=== PATIENT | female | born 1930 | race Caucasian/White ===

== ENCOUNTER 2017-01-29 08:59 | Inpatient (IN) ==
[2017-01-29 10:50] VITALS: BMI 24.5
[2017-01-29] MEDS ORDERED: NS 1,000 ML IV SCH (11:30)
--- OUTSIDE RECORDS SUMMARY | 2017-01-29 11:38 | External Medical Summary ---
:1930 Author Organization [facility]. Summary purpose CCDA Sent to [facility] Chief Complaint and Reason for Visit No authorized Reason for Visit (Admitting Diagnosis) is available for this visit. Problem list No authorized problems tracked for continuity of care are available for this visit. Encounters No authorized problems tracked for encounter diagnoses are available for this visit. Medications No medications recorded for this patient visit Allergies, adverse reactions, alerts Allergen Category Ingredient Status Reaction Severity Onset Demerol Drug Demerol Active Nausea Adult Demerol Drug meperidine Active Nausea Adult Immunizations No immunizations recorded for this patient visit Relevant diagnostic tests and/or laboratory data RESULTS CBC [id number]:16:00 Result Normal Range Units WBC 6.16 4.8-10.8 x103/mm3 Neutrophil % 57.5 50-70 % Lymph % 26.8 20-50 % Har[place]on % H 9.9 1.0-9.0 % Eosinophil % H 5.5 0-4 % Basophil % 0.3 0-2 % Neutrophil # 3.54 3.0-7.0 x103/mm3 Lymph # 1.65 1.0-4.0 x103/mm3 Haralson # 0.61 0.0-0.8 x103/mm3 Eosinophil # 0.34 0-0.5 x103/mm3 Basophil # 0.02 0-0.2 x103/mm3 RBC 4.52 4.20-5.40 x103/mm3 HGB 14.6 12.0-16.0 g/dl HCT 42.9 37.0-47.0 % MCV 94.9 81-99 FL MCH H 32.3 27.0-31.0 pg MCHC 34.0 32.0-36.0 g/dl RDW 12.6 12-15 % Platelet 183 150-400 x103/mm3 MPV H 11.7 6.0-10.0 FL Chemistry Group [id number]:00 Result Normal Range Units Sodium 141 134-145 mmol/L Potassium L 3.5 3.6-5.0 mmol/L Chloride L 97 98-107 mmol/L CO2 H 33 22-30 mmol/L Glucose H 115 75-110 mg/dl BUN 16 9-20 mg/dl Creatinine 1.26 0.8-1.7 mg/dl eGFR 40 ml/min. Total Protein 7.0 6.3-8.2 g/dl Albumin 3.6 3.5-5.0 g/dl Calcium HC 12.9 8.4-10.2 mg/dl CALLED TO ASH AT 14:02 [id number] BY LAD Alk Phos 76 38-126 U/L AST 26 14-36 U/L ALT 14 11-66 U/L T Bili .7 0.2-1.3 mg/dl A/G Ratio 1.1 Ratio History of procedures Procedure Code Code Type Description Date Performed Performing Physician 68241 CPT-4 COMPLETE CBC, 08-18-2016 JUNIE GRIDER AUTOMATED 59209 CPT-4 COMPREHEN METABOLIC 08-18-2016 JUNIE GRIDER PANEL Functional status No functional or cognitive status observations are available for this visit. Vital signs No authorized vital signs are available for this visit. Social history No Social History or smoking status observations were recorded for this visit. ( Unknown if ever smoked.) Treatment Plan No treatment plan text is available for this visit. Hospital discharge instructions No discharge instruction text is available for this visit.
--- OUTSIDE RECORDS SUMMARY | 2017-01-29 11:38 | External Medical Summary ---
:[address] [facility]. Summary purpose CCDA Sent to [facility] Chief Complaint and Reason for Visit Admit Diagnosis 1 bloody stools Problem list No authorized problems tracked for [...] visit Relevant diagnostic tests and/or laboratory data No authorized results are available for this patient visit History of procedures No procedures recorded for this patient visit. Functional status No functional or cognitive status [...]
--- OUTSIDE RECORDS SUMMARY | 2017-01-29 11:41 | External Medical Summary ---
:1930 Author Organization [facility]. Summary purpose CCDA Sent to [facility] Chief Complaint and Reason for Visit [...]
--- OUTSIDE RECORDS SUMMARY | 2017-01-29 11:46 | External Medical Summary ---
:1930 Author Organization [facility]. Summary purpose CCDA Sent to [facility] Chief Complaint and Reason for Visit Admit Diagnosis 1 rectal bleeding Problem list No authorized problems tracked for [...]
--- OUTSIDE RECORDS SUMMARY | 2017-01-29 11:46 | External Medical Summary ---
:1930 Author Organization [facility]. Summary purpose CCDA Sent to [facility] Chief Complaint and Reason for Visit [...] for this patient visit History of procedures Procedure Code Code Type Description Date Performed Performing Physician 71541 CPT-4 THERAPEUTIC EXERCISES 09-14-2016 DAJUAN WILKINSONLOM [place] [address]7071 CPT-4 GAIT TRAINING THERAPY 09-14-2016 DAJUAN NOYOLA [place] 79217 CPT-4 PT EVAL MOD COMPLEX 30 09-14-2016 DAJUAN [place]UM [place] [address] CPT-4 NEUROMUSCULAR 09-21-2016 DAJUAN ULRADUM [place] REEDUCATION 93905 CPT-4 NEUROMUSCULAR 09-23-2016 DAJUAN MINHRADUM [place] REEDUCATION 28183 CPT-4 GAIT TRAINING THERAPY 09-21-2016 DAJUAN ULLOM [place] 15659 CPT-4 GAIT TRAINING THERAPY 09-23-2016 DAJUAN MINHLOM [place] 44775 CPT-4 MANUAL THERAPY 09-21-2016 DAJUAN ULLOM [place] 26608 CPT-4 MANUAL THERAPY 09-23-2016 DAJUAN ULLOM [place] 22444 CPT-4 THERAPEUTIC EXERCISES 09-30-2016 DAJUAN ULLOM [place] 92311 CPT-4 THERAPEUTIC EXERCISES 10-02-2016 DAJUAN ULLOM [place] 50710 CPT-4 MANUAL THERAPY 09-30-2016 DAJUAN ULRADUM [place] 05181 CPT-4 MANUAL THERAPY 10-02-2016 DAJUAN ULLOM [place] 01822 CPT-4 THERAPEUTIC EXERCISES 10-06-2016 [facility] 79640 CPT-4 MANUAL THERAPY 10-06-2016 DAJUANMARQUEZ VALLECILLO [facility] Functional status No functional or cognitive status [...]
--- OUTSIDE RECORDS SUMMARY | 2017-01-29 11:46 | External Medical Summary ---
:1930 Author Organization [facility]. Summary [facility] Chief Complaint and Reason for Visit [...] Code Type Description Date Performed Performing Physician 43094 CPT-4 THERAPEUTIC EXERCISES 10-13-2016 DAJUAN BRIGHT 31931 CPT-4 MANUAL THERAPY 10-13-2016 DAJUAN BRIGHT Functional status No functional or cognitive status [...]
--- OUTSIDE RECORDS SUMMARY | 2017-01-29 11:46 | External Medical Summary ---
:1930 Author Organization [facility]. Summary purpose CCDA Sent to [facility] Chief Complaint and Reason for Visit Admit Diagnosis 1 FALL, R FOOT PAIN Problem list No authorized problems tracked for [...] recorded for this patient visit. Functional status Cognitive Status Finding Observation Time Level of Consciousne Alert 56-96-110788:35 Oriented to Person Yes 42-40-891519:[address] Yes 77-21-835526:35 Oriented to Time Yes 72-31-106712:35 Vital signs Type Value Date Respirations 18 49-37-485342:35 Pulse 70 34-97-824269:35 O2 Saturation 96% :35 Systolic Blood Press 153mm/HG 50-15-598480:35 Diastolic Blood Pres 92mm/HG 27-45-131444:35 Temperature (Fahr) 98.8Degrees 73-56-070102:35 Height 65in 46-62-646253:30 Weight 145LB 76-27-211230:30 Social history Type Value Smoking Status NEVER SMOKER Treatment Plan No treatment plan text is available for this visit. Hospital discharge instructions No discharge instruction text is available for this visit.
--- OUTSIDE RECORDS SUMMARY | 2017-01-29 11:46 | External Medical Summary ---
:1930 Author Organization [facility]. Summary purpose CCDA Sent to [facility] Chief Complaint and Reason for Visit Admit Diagnosis 1 GOUT NOS Problem list No authorized problems tracked for continuity of care are available for this visit. Encounters No authorized problems tracked for encounter diagnoses are available for this visit. Medications No home medications recorded for this patient visit Allergies, adverse reactions, alerts No allergy information is available for this patient. Immunizations No immunizations recorded for this patient visit Relevant diagnostic tests and/or laboratory data RESULTS Chemistry Group [id number]:00 Result Normal Range Units Sodium 137 134-145 mmol/L Potassium 4.2 3.6-5.0 mmol/L Chloride 98 98-107 mmol/L CO2 30 22-30 mmol/L Glucose 102 75-110 mg/dl BUN 19 9-20 mg/dl Creatinine 1.1 0.8-1.7 mg/dl Calcium H 11.0 8.4-10.2 mg/dl Uric Acid 7.8 3.5-8.5 mg/dl History of procedures Procedure Code Code Type Description Date Performed Performing Physician 33187 CPT-4 METABOLIC PANEL TOTAL 10-03-[place] [address] CPT-4 ASSAY OF BLOOD/URIC 10-03-2014 JAYSON NUNN ACID Functional status No functional or cognitive status [...]
--- NOTE | 2017-01-29 12:58 | History & Physical Report ---
History of Present Illness Date: 01/29/17 Chief complaint: GI Bleed HPI: Patient is an 86-year-old female who presents as a direct admission from [facility] for a GI bleed. She started having bloody stools on 01/24/17. Bleeding has been bright red and sometimes clots. Patient reports she had bleeding the through the . On the and most of the she didn't have much bleeding. Yesterday afternoon she had a large stool with a large amount of bleeding so she was seen by Dr. Velazquez in the clinic. At that point, anoscopy was performed and showed a large amount of blood beyond the point of which Dr. Velazquez could see with anoscopy exam. Patient was scheduled for CT scan of her abdomen today as patient was declining colonoscopy. Overnight, she had a large bloody stool at 1:30 AM and continued to have bloody stool so reported to the ER around 5 AM. Her hemoglobin at 6 AM this morning was 12.1. Yesterday at 1715 hemoglobin was 12.2. She's had no pain. No lightheadedness or dizziness. Has history of diverticuli found on colonoscopy. Last colonoscopy was 2003. She has had past history of hemorrhoidectomy as well. She does not take any blood thinners. Given the amount of blood she is losing and how long she's had symptoms, decision was made to transfer to [facility] for observation and probable colonoscopy with Dr. Hewitt. Patient was seen sitting in bed with her daughter at bedside. She does not have any complaints at this time, other than she is anxious about what might be causing the bleeding. She reports that before her symptoms started, she had "farted and it was a sonic boom." States she had never had flatulence which was that loud. She states it actually startled her. She did not have any pain at the time, but about 30 minutes after that is when she started having the bright red bleeding. Review of Systems All systems PM: 10-point ROS was reviewed, no additional remarkable complaints except - Gastrointestinal Gastrointestinal: Present: hematochezia - Psychiatric Psychiatric: Present: anxiety PFSH Medical History Hypertension Hypercholesterolemia Restless leg syndrome Osteopenia Hypothyroidism Primary hyperparathyroidism-status post removal of hyperparathyroids Gout Osteoarthritis Diverticulosis Surgical History: Hysterectomy/A&P repair 08/30/2002, D&C 1984, 1994, tubal ligation 1968, parathyroidectomy 02/07/2002-Dr. Godinez, blocked tear duct surgery and lacrimal duct stent placement 12/03/03, fracture repair right wrist 08/17, hemorrhoidectomy 1981, colonoscopy 2003 (diverticuliti) Family History: Father- at age 95. Cause of was pneumonia. Type 2 diabetes. Mother- at age 85. Cerebrovascular accident, hypertension. Brother- at age 87. Cause of was pancreatic cancer. Hypertension, osteoarthritis of knees. Sister-arthritis Son-coronary artery disease (stent), implantable defibrillator Son-coronary artery disease (CABG at age 43), hypertension Daughter-healthy Son- at age 39. Hypertension, dermatomyositis, muscular dystrophy - Social History Smoking status: Never smoker Substance use type: does not use Alcohol intake frequency: does not drink Housing: house Household members: none Current occupational status: retired [facility] Home Medications Medication Instructions Recorded Confirmed Type Amitriptyline [Elavil] 1 tab PO HS 01/29/17 01/29/17 History Clobetasol 0.05% Cream [TEMOVATE 15 applicatio TOP BID PRN 01/29/17 01/29/17 History Cream] Excedrin Extra Strength Caplet 2 tab PO PRN PRN 01/29/17 01/29/17 History HydroCHLOROthiazide [Microzide] 12.5 mg PO DAILY 01/29/17 01/29/17 History Levothyroxine Tab [Synthroid] 88 mcg PO DAILY 01/29/17 01/29/17 History Propanolol LA [Inderal LA] 80 mg PO DAILY 01/29/17 01/29/17 History Simvastatin 80 mg PO DAILY 01/29/17 01/29/17 History Allergies Allergy/AdvReac Type Severity Reaction Status Date / Time cephalexin [From Keflex] Allergy Severe Swelling Verified 01/29/17 11:21 quinapril [From Accupril] Allergy Intermediate Cough Verified 01/29/17 11:21 Sulfa (Sulfonamide Allergy Intermediate Rash Verified 01/29/17 11:21 Antibiotics) ropinirole [From Requip] Allergy Unknown Verified 01/29/17 11:21 meperidine [From Demerol] AdvReac Severe Nausea and Verified 01/29/17 10:40 Vomiting carbidopa [From Sinemet] AdvReac Intermediate Constipatio Verified 01/29/17 11: 21 n levodopa [From Sinemet] AdvReac Intermediate Constipatio Verified 01/29/17 11:21 n Exam Vital Signs: Temperature 97.6 F 01/29/17 10:47 Pulse Rate 63 01/29/17 10:47 Respiratory Rate 16 01/29/17 10:47 Blood Pressure 145/81 H 01/29/17 10:47 Pulse Oximetry 97 01/29/17 10:47 Height/Weight/BMI: Height 1.65 m Weight 66.8 kg Body Mass Index 24.5 - Constitutional Present: no acute distress, well nourished, well developed - Routine HEENT Exam Head: Present: normocephalic, atraumatic Eye: Present: EOMI ENT: Present: mucous membranes moist, oropharynx clear - Routine Neck Exam Present: supple. Absent: lymphadenopathy, thyromegaly - Routine Respiratory Exam Present: CTA bilaterally. Absent: wheezes - Routine Cardiovascular Exam Present: RRR, S1, S2. Absent: murmur - Routine Abdominal Exam Present: soft, normoactive bowel sounds, non distended. Absent: tenderness - Routine Extremities Exam Present: edema (trace bilateral), normal capillary refill - Routine Skin Exam Present: dry, warm - Routine Neurological Exam Present: alert, oriented X3, CN II-XII intact - Routine Psychiatric Exam Present: normal affect, cooperative Comments: Slightly tearful due to anxiety of the unknown. Results - Labs CBC & Chem 7: 01/29/17 13:14 01/29/17 13:14 Labs: 01/29/17 0620 WBC 9.02, RBC 3.16, hemoglobin 12.1, hematocrit 35.8, platelets 212 01/28/17 1715 WBC 10.05, RBC 3.59, hemoglobin 12.2, hematocrit 35.3, platelet 235 Assessment and Plan (1) GI bleeding Current visit: Yes Status: Acute Assessment and Plan: Assessment GI bleeding evidenced by hematochezia Hypertension Hypercholesterolemia Restless leg syndrome Osteopenia Hypothyroidism Primary hyperparathyroidism-status post removal of hyperparathyroids Gout Osteoarthritis Diverticulosis Plan Admit to observation under the hospitalist service, Dr. Bragg attending, for GI bleed. Consult Dr. Hewitt for his recommendations on endoscopy. Patient will be nothing by mouth in anticipation of endoscopy. Protonix IV twice a day for GI prophylaxis and GI bleed. IVF'S for fluid maintenance. Check CBC and BMP on admission. Repeat CBC in the a.m. SCDs for DVT prophylaxis. Avoid Lovenox due to GI bleed. Will obtain PT consult as patient has reportedly had 6 falls this year and daughter thinks she drags her left leg when she walks. Patient requests DO NOT RESUSCITATE code status. Patient's care to return to Dr. Abimbola Spence on discharge. Damaris Bragg MD I have independently evaluated and examined this patient. I reviewed the chart, the patient's history, and the DENTAL SALES REPRESENTATIVE/PA's documented findings as above. We discussed and formulated the assessment and plan as above with additions as below: Mrs. Ledezma says she is OK. c/o some nausea since the EGD. The EGD showed a hiatal hernia but not a source for her bleeding. She understands colonoscopy is planned for Wednesday. She had lightheadedness earlier, but that is not entirely new. She says she always sits a bit before standing. NAD, anicteric, ctab, rrr, s/nt/nd +bs, no edema. Placed on a clear diet. Hgb is stable. Will monitor. IVF started for lightheadedness but stopped later when BP elevated. Hydralazine available prn. Restart propranolol as well as synthroid, zocor, elavil. DVT Prophylaxis: SCD's GI Prophylaxis: Protonix Resuscitation Status: Do Not Resuscitate Hospital Course Summary Disclaimer: The visit summary below is not to be considered part of the above Progress Note. Hospital Course: Assessment GI bleeding evidenced by hematochezia Hypertension Hypercholesterolemia Restless leg syndrome Osteopenia Hypothyroidism Primary hyperparathyroidism-status post removal of hyperparathyroids Gout Osteoarthritis Diverticulosis 01/29/17-hospital admission for observation Admit to observation under the hospitalist service, Dr. Bragg attending, for GI bleed. Consult Dr. Hewitt for his recommendations on endoscopy. Patient will be nothing by mouth in anticipation of endoscopy. Protonix IV twice a day for GI prophylaxis and GI bleed. IVF'S for fluid maintenance. Check CBC and BMP on admission. Repeat CBC in the a.m. SCDs for DVT prophylaxis. Avoid Lovenox due to GI bleed. Will obtain PT consult as patient has reportedly had 6 falls this year and daughter thinks she drags her left leg when she walks. Patient requests DO NOT RESUSCITATE code status. Patient's care to return to Dr. Abimbola Spence on discharge. 01/29/17 20:27 Placed on a clear diet. Hgb is stable. Will monitor. IVF started for lightheadedness but stopped later when BP elevated. Hydralazine available prn. Restart propranolol as well as synthroid, zocor, elavil.
--- NOTE | 2017-01-29 14:42 | General Surgery Consult Note ---
Consult date: 02/01/17 Attending Physician: Darion Bragg IV, MD Reason for consult: endoscopy [facility] Patient Stated Medical History Cataracts Yes Hearing Loss Yes: hearing aides Hypertension Yes Gastrointestinal Bleeding Yes: current Osteoarthritis Yes: knees Other Musculoskeletal Yes: muscle spasms Anesthesia Reactions Yes Blood Transfusions Yes Other Behavioral Health Yes: reports feeling stressed Hypothyroidism Migraine headaches Gait instability Clinic Medical History GI bleeding (Acute Medical) Surgical History: Hysterectomy/A&P repair 08/30/2002, D&C 1984, 1994, tubal ligation 1968, parathyroidectomy 02/07/2002-Dr. Godinez, blocked tear duct surgery and lacrimal duct stent placement 12/03/03, fracture repair right wrist 08/17, hemorrhoidectomy 1981, colonoscopy 2001 & 2003 (diverticuliti) with prior history of adenomatous polyp Family History: Father- at age 95. Cause of was pneumonia. Type 2 diabetes. Mother- at age 85. Cerebrovascular accident, hypertension. Brother- at age 87. Cause of was pancreatic cancer. Hypertension, osteoarthritis of knees. Sister-arthritis, breast cancer age 25 and then opposite breast age 39 Son-coronary artery disease (stent), implantable defibrillator Son-coronary artery disease (CABG at age 43), hypertension Daughter-healthy Son- at age 39. Hypertension, dermatomyositis, muscular dystrophy - Social History Smoking status: Never smoker Alcohol intake frequency: does not drink [facility] Home Medications Medication Instructions Recorded Confirmed Type Amitriptyline [Elavil] 1 tab PO HS 01/29/17 01/29/17 History Clobetasol 0.05% Cream [TEMOVATE 15 applicatio TOP BID PRN 01/29/17 01/29/17 History Cream] Excedrin Extra Strength Caplet 2 tab PO PRN PRN 01/29/17 01/29/17 History HydroCHLOROthiazide [Microzide] 12.5 mg PO DAILY 01/29/17 01/29/17 History Levothyroxine Tab [Synthroid] 88 mcg PO DAILY 01/29/17 01/29/17 History Propranolol LA [Inderal LA] 80 mg PO DAILY 01/29/17 01/29/17 History Simvastatin 80 mg PO DAILY 01/29/17 01/29/17 History Allergies Allergy/AdvReac Type Severity Reaction Status Date / Time cephalexin [From Keflex] Allergy Severe Swelling Verified 01/29/17 11:21 quinapril [From Accupril] Allergy Intermediate Cough Verified 01/29/17 11:21 Sulfa (Sulfonamide Allergy Intermediate Rash Verified 01/29/17 11:21 Antibiotics) ropinirole [From Requip] Allergy Unknown Verified 01/29/17 11:21 meperidine [From Demerol] AdvReac Severe Nausea and Verified 01/29/17 10:40 Vomiting carbidopa [From Sinemet] AdvReac Intermediate Constipatio Verified 01/29/17 11: 21 n levodopa [From Sinemet] AdvReac Intermediate Constipatio Verified 01/29/17 11:21 n Review of Systems 10-point ROS: negative except for HPI and the following: - Eyes/Ears/Nose/Throat Eyes: Present: vision problems (wears glasses) - Gastrointestinal Gastrointestinal: Present: blood in stools, hemorrhoids - Musculoskeletal Musculoskeletal: Present: neck pain - Neurological Neurological: Present: muscle weakness, other (unsteady gait) - Vital Signs Last Vital Signs Temp 97.6 F 01/29/17 10:47 Pulse 63 01/29/17 10:47 Resp 16 01/29/17 10:47 BP 145/81 H 01/29/17 10:47 Pulse Ox 97 01/29/17 10:47 - Laboratory Result Diagrams: 02/01/17 04:05 02/01/17 04:05 General Surgery Results - Results Labs: 01/29/17 13:14 01/29/17 13:14 Hospital Course Summary Disclaimer: The visit summary below is not to be considered part of the above Progress Note. Hospital Course: Assessment GI bleeding evidenced by hematochezia Hypertension Hypercholesterolemia Restless leg syndrome Osteopenia Hypothyroidism Primary hyperparathyroidism-status post removal of hyperparathyroids Gout Osteoarthritis Diverticulosis 01/29/17-hospital admission for observation Admit to observation under the hospitalist service, Dr. Bragg attending, for GI bleed. Consult Dr. Hewitt for his recommendations on endoscopy. Patient will be nothing by mouth in anticipation of endoscopy. Protonix IV twice a day for GI prophylaxis and GI bleed. IVF'S for fluid maintenance. Check CBC and BMP on admission. Repeat CBC in the a.m. SCDs for DVT prophylaxis. Avoid Lovenox due to GI bleed. Will obtain PT consult as patient has reportedly had 6 falls this year and daughter thinks she drags her left leg when she walks. Patient requests DO NOT RESUSCITATE code status. Patient's care to return to Dr. Abimbola Spence on discharge.
[2017-01-29] MEDS ORDERED: LR 1,000 ML IV SCH (15:15)
[2017-01-29] MEDS ORDERED: LABETALOL 20mg/4ml INJECTION IVP SCH (15:15)
[2017-01-29] MEDS ORDERED: LABETALOL 100mg/20ml INJECTION IVP SCH (15:30)
--- NOTE | 2017-01-29 15:49 | Anesthesia Preoperative Report ---
Anesthesia Preoperative Record - Date and Time Date: 01/29/17 Preoperative Diagnosis: GI Bleed Proposed Procedure: egd NPO Since Date: 01/29/17 NPO Since Time: 05:00 Allergies/Adverse Reactions: Allergies Allergy/AdvReac Type Severity Reaction Status Date / Time cephalexin [From Keflex] Allergy Severe Swelling Verified 01/29/17 11:21 quinapril [From Accupril] Allergy Intermediate Cough Verified 01/29/17 11:21 Sulfa (Sulfonamide Allergy Intermediate Rash Verified 01/29/17 11:21 Antibiotics) ropinirole [From Requip] Allergy Unknown Verified 01/29/17 11:21 meperidine [From Demerol] AdvReac Severe Nausea and Verified 01/29/17 10:40 Vomiting carbidopa [From Sinemet] AdvReac Intermediate Constipatio Verified 01/29/17 11: 21 n levodopa [From Sinemet] AdvReac Intermediate Constipatio Verified 01/29/17 11:21 n - Vital Signs Vital Signs: Temperature 97.6 F 01/29/17 14:45 Pulse Rate 68 01/29/17 15:31 Respiratory Rate 18 01/29/17 15:31 Blood Pressure 154/72 H 01/29/17 15:31 Pulse Oximetry 93 01/29/17 15:31 Height and Weight: Height 1.65 m Weight 66.8 kg Body Mass Index 24.5 - Medications Inpatient Medications: Current Medications Sodium Chloride (Normal Saline) 1,000 mls @ 125 mls/hr IV .Q8H [facility] Last Admin: 01/29/17 11:28 Dose: 125 mls/hr Lactated Ringer's (Lactated Ringers) 1,000 mls @ 50 mls/hr IV .Q20H [facility] Last Admin: 01/29/17 15:12 Dose: 50 mls/hr Labetalol HCl (Trandate) 5 mg IVP 1-3XD [facility] Last Admin: 01/29/17 15:21 Dose: 5 mg Pantoprazole Sodium (Protonix Iv) 40 mg IVP BID [facility] Last Admin: 01/29/17 13:08 Dose: 40 mg Home Medications: Home Medications Medication Instructions Recorded Confirmed Type Amitriptyline [Elavil] 1 tab PO HS 01/29/17 01/29/17 History Clobetasol 0.05% Cream [TEMOVATE 15 applicatio TOP BID PRN 01/29/17 01/29/17 History Cream] Excedrin Extra Strength Caplet 2 tab PO PRN PRN 01/29/17 01/29/17 History HydroCHLOROthiazide [Microzide] 12.5 mg PO DAILY 01/29/17 01/29/17 History Levothyroxine Tab [Synthroid] 88 mcg PO DAILY 01/29/17 01/29/17 History Propanolol LA [Inderal LA] 80 mg PO DAILY 01/29/17 01/29/17 History Simvastatin 80 mg PO DAILY 01/29/17 01/29/17 History Is Patient on Beta Elie?: Yes - Medical History Respiratory: DENIES: Sleep Apnea Cardiovascular: Reports: Hypertension, High Cholesterol Gastrointestional: Reports: Gastrointestinal Bleeding (current) Neuro/Musculoskeletal: Reports: HX.MS.OSAR (knees), Back Problems (back spasms) , Other (muscle spasms) Renal/Endocrine: Reports: Thyroid Disease Other History: Reports: Anesthesia Reactions, Blood Transfusions - Surgical History Endocrine Surgery/Treatments: Reports: Thyroidectomy Reproductive Surgery/Treatment: Reports: Hysterectomy Hx Family Anesthesia Reaction: No History of Motion Sickness: No - Social History Smoking Status: Never smoker Hx Chewing Tobacco Use: No Second Hand Exposure: No Substance Use Type: does not use Alcohol Intake Frequency: does not drink - Pertinent Findings Laboratory: CBC and BMP 01/29/17 13:14 01/29/17 13:14 BMP 01/29/17 13:14 Sodium 143 Potassium 3.6 Chloride 106 Carbon Dioxide 30 BUN 15.0 Creatinine 0.9 Glucose 114 H Calcium 11.0 H EKG: Sinus Rhythm - Physical Exam Respiratory Exam: Present: lungs clear Cardiovascular Exam: Present: regular rate and rhythm, no murmur - Airway Assessment Mallampati Score: II TMD: 3 Fingerbreadths Neck Extension: good Teeth: chipped teeth/crowns Overall Assessment: no airway concerns - ASA ASA Score: 3 - Plan Anesthesia: General TIVA - Discussion Discussion: Discussed risks/options/alternatives of anesthesia and questions answered. Patient consents. Nursing pain assessment noted. Present for Discussion: children Attestation Statement: Prior to the delivery of any anesthetic medication, I examined the patient, developed the plan, obtained the patient's consent and discussed the risk and benefits of the procedure with the patient/guardian. - Additional Information Seen by Anesthesia: Yes
--- NOTE | 2017-01-29 16:25 | General Surgery Procedure Note ---
Date of Procedure: 01/29/17 Surgeon: Kash Anesthesia: General TIVA Pre-op diagnosis: rectal bleeding Postoperative Diagnosis: hiatal hernia Procedure: EGD Estimated Blood Loss: See Anesthesia Record.
--- NOTE | 2017-01-29 16:45 | Anesthesia Postoperative Note ---
- Date and Time Date: 01/29/17 Time: 16:44 - Status Patient Participated in Evaluation: Patient Participated in Person Vital Signs: Temperature 97.2 F 01/29/17 16:14 Pulse Rate 60 01/29/17 16:25 Respiratory Rate 21 01/29/17 16:25 Blood Pressure 154/72 H 01/29/17 16:25 Pulse Oximetry 100 01/29/17 16:25 Respiratory Function: Airway Patent Cardiovascular Function: Regular Pulse EKG: Sinus Rhythm Mental Status: Alert and Oriented Pain Intensity: 0 Hydration: IV Infusing Complications During Recover: None Apparent - Follow-Up Instructions Instructions: Per Surgeon
[2017-01-29] MEDS ORDERED: HYDRALAZINE 10 MG TABLET PO PRN (17:30)
--- NOTE | 2017-01-29 17:48 | Consultation ---
DATE OF CONSULTATION 01/29/2017 FINDINGS Mrs. Ledezma is an 86-year-old female whom I was asked to see earlier today by the patient's primary care physician, Dr. Misty Velazquez in [place], [place]. Apparently the patient has been having intermittent rectal bleeding for about the last week. Yesterday this rectal bleeding became more significant in nature and the patient states that she had several large bloody stools yesterday. Initially the blood that she was passing per rectum was more "dark and maroon." Yesterday the patient stated that the blood that she was passing was more bright red in nature. She does state that she has noted some upper abdominal discomfort after eating. Upon questioning the patient in regards to nonsteroidal use she informs me that she does take a few Aleve on a daily basis for headaches. The patient states that her last endoscopic evaluation of her colon was about 10-11 years ago. She states that they were not able to "get all the way around." The patient stated that she had a barium enema afterwards which she "will never do again." Upon questioning the patient she states that they did not find much of any abnormalities. Upon further questioning the patient she does remember that they had found some diverticula. As a result of this increasing bleeding she presented to [facility] and was subsequently transferred to our facility for further care. PAST MEDICAL HISTORY, PAST SURGICAL HISTORY, MEDICATIONS, ALLERGIES, SOCIAL HISTORY, FAMILY HISTORY, REVIEW OF SYSTEMS Performed by my nurse practitioner, Reynaldo Darling APRN PHYSICAL EXAMINATION GENERAL: Mrs. Ledezma is an 86-year-old female who does not appear to be in acute distress. VITAL SIGNS: Vitals: Temperature 97.6, pulse 68, respirations 18, blood pressure 154/92, SAO2 93% on room air. HEENT: Normocephalic. Pupils are equally round and react to light and accommodation. NECK: Supple without lymphadenopathy. CHEST: Clear to auscultation bilaterally. HEART: Regular rate and rhythm. Normal S1 and S2 without gallops, murmurs or clicks. ABDOMEN: Palpation of the abdomen reveals it to be soft and nontender. I do not appreciate any evidence for hepatosplenomegaly nor abnormal masses. EXTREMITIES: Without clubbing, cyanosis, or edema. NEURO: Cranial nerves II-XII grossly intact. Patient is without focal motor or sensory deficits. LABORATORY/RADIOGRAPHIC EVALUATION The patient had a CBC and her hemoglobin today was that 12.1. BMP was obtained and found to be without marked abnormalities. Glucose was slightly elevated at 114. ASSESSMENT 86-year-old female with history for epigastric abdominal pain, nonsteroidal use , and rectal bleeding. PLAN I agree with current management of this patient. She was placed in our facility and placed on n.p.o. status. She was treated empirically for peptic ulcer disease and Protonix 40 mg IV b.i.d. was ordered. From a surgical/ endoscopic standpoint I would recommend that today we go ahead and proceed with an EGD although it is my clinical intuition that her bleeding is likely diverticular in nature. I did discuss with the patient and her daughter what esophagogastroduodenoscopy entailed and its associated risks which included but was not inclusive of bleeding and/or perforation. Patient understood and wished to proceed with EGD at this time. If no marked abnormalities are noted the patient may require bowel prep and colonoscopy for further evaluation of her rectal bleeding. MTDD
[2017-01-29] MEDS ORDERED: CLOBETASOL 0.05% CREAM 15gm TOP PRN (20:20)
[2017-01-29] MEDS ORDERED: PANTOPRAZOLE 40 MG INJECTION IVP SCH (21:00)
[2017-01-29] MEDS: ACETAMINOPHEN 325 MG TABLET PO PRN (22:36)
[2017-01-29] MEDS: AMITRIPTYLINE 10 MG TABLET PO SCH (22:57)
[2017-01-30] MEDS: LEVOTHYROXINE 88 MCG TABLET PO SCH (07:20)
[2017-01-30] MEDS: PROPANOLOL 80 MG PO SCH (08:46)
[2017-01-30] MEDS: ACETAMINOPHEN 325 MG TABLET PO PRN ×2 (10:08→22:11)
--- NOTE | 2017-01-30 10:28 | Progress Note ---
- Date 01/30/17 Subjective: Pt doing well this am. Denies any n/v/d, f/c, cp or sob. Reports she is feeling well enough to go home and would like to if possible. Denies abdominal pain. Pt had 2-3 BM's overnight without any bleeding. Denies any dizziness. Objective Vital signs: Temperature 96.3 F L 01/30/17 07:35 Pulse Rate 71 01/30/17 07:35 Respiratory Rate 16 01/30/17 07:35 Blood Pressure 140/72 H 01/30/17 07:35 Pulse Oximetry 96 01/30/17 07:35 Rhythm: Normal Sinus Rhythm Height/Weight/BMI: Height 5 ft 5 in Weight 66.5 kg Body Mass Index 24.5 - Constitutional Present: no acute distress, well nourished - Routine HEENT Exam Head: Present: normocephalic, atraumatic Eye: Present: EOMI - Routine Respiratory Exam Present: CTA bilaterally. Absent: wheezes - Routine Cardiovascular Exam Present: RRR, no murmur - Routine Abdominal Exam Present: soft, normoactive bowel sounds, non distended, non tender - Routine Extremities Exam Present: edema. Absent: cyanosis, clubbing - Routine Skin Exam Present: intact. Absent: cyanosis, erythema - Routine Neurological Exam Present: alert, oriented X3 - Routine Psychiatric Exam Present: normal affect Results - Labs CBC & Chem 7: 01/30/17 03:54 01/29/17 13:14 Assessment and Plan (1) GI bleeding Current visit: Yes Status: Acute Assessment and Plan: LGI Bleed -Diverticulosis vs. angiodysplasia -S/p EGD which was unremarkable other then hiatal hernia -Hgb 12.1-->10.3, trend H&H, no active bleeding -IV fluids, monitor, advance diet, Dr. Hewitt following HTN -Vitals stable, BPs around 140s -Will Cont. home propranolol HLD -Cont. home simvastatin Hypothyroid -Cont. home Levothyroxine Primary hyperparathyroidism -status post removal of hyperparathyroids -Although Ca is 11, will check ical DVT ppx -SCDs Hospital Course Summary Disclaimer: The visit summary below is not to be considered part of the above Progress Note. Hospital Course: Assessment GI bleeding evidenced by hematochezia Hypertension Hypercholesterolemia Restless leg syndrome Osteopenia Hypothyroidism Primary hyperparathyroidism-status post removal of hyperparathyroids Gout Osteoarthritis Diverticulosis 01/29/17-hospital admission for observation Admit to observation under the hospitalist service, Dr. Bragg attending, for GI bleed. Consult Dr. Hewitt for his recommendations on endoscopy. Patient will be nothing by mouth in anticipation of endoscopy. Protonix IV twice a day for GI prophylaxis and GI bleed. IVF'S for fluid maintenance. Check CBC and BMP on admission. Repeat CBC in the a.m. SCDs for DVT prophylaxis. Avoid Lovenox due to GI bleed. Will obtain PT consult as patient has reportedly had 6 falls this year and daughter thinks she drags her left leg when she walks. Patient requests DO NOT RESUSCITATE code status. Patient's care to return to Dr. Abimbola Spence on discharge. 01/29/17 20:27 Placed on a clear diet. Hgb is stable. Will monitor. IVF started for lightheadedness but stopped later when BP elevated. Hydralazine available prn. Restart propranolol as well as synthroid, zocor, elavil. 01/30/17 10:45 01/30/17 Patient doing well and wants to go home soon. Hgb dropped to 10 from 12 but likely partly due to getting IV fluids but will trend H&H. Pt not having anymore blood BMs. Will continue to monitor for bleeding and will trend H&H. If all is stable then can consider discharging pt tomorrow with outpatient colonoscopy as pt does need urgent colonoscopy. Will check ical due to mild hypercalcemia which is odd considering reported hx of parathyroidectomy. Will cont. home meds for chronic conditions. 01/30/17 10:58
--- NOTE | 2017-01-30 11:29 | Progress Note ---
DATE OF SERVICE 01/29/2017 FINDINGS Mrs. Ledezma today was without complaints. She denied any element of abdominal pain. She has had no further rectal bleeding. PHYSICAL EXAM VITAL SIGNS: Temperature 96.3, pulse 71, respirations 16, blood pressure 140/ 72. HEENT: Normocephalic. Pupils are equally round and react to light and accommodation. CHEST: Clear to auscultation bilaterally. HEART: Regular rate and rhythm. Normal S1 and S2 without gallops, murmurs or clicks. ABDOMEN: Palpation of the abdomen today revealed it to be soft and completely nontender. No evidence for guarding or rebound. LABORATORY/RADIOGRAPHIC EVALUATION The patient's hemoglobin has decreased from 12.1 yesterday to 10.3 today. ASSESSMENT 86-year-old female with history of lower GI bleed most likely diverticular in nature. PLAN Will increase diet as tolerated. Will discuss case with hospitalist. One option would be to keep the patient in the hospital over the course of the weekend and proceed with bowel prep tomorrow and colonoscopy on Wednesday. Another option, given the fact that her bleeding has seemed to subside over the last 24 hours, would be to go ahead and discharge the patient this evening and perform bowel prep tomorrow and colonoscopy on Wednesday. I am a little reluctant to discharge the patient given the fact that she apparently has had a component of bleeding on and off over the course of the last week. JUSTIN
--- NOTE | 2017-01-30 12:05 | Operative Note ---
DATE OF SERVICE 01/29/2017 SURGEON Ray Hewitt MD PREOPERATIVE DIAGNOSES History for epigastric abdominal pain, personal history for nonsteroidal use, history for rectal bleeding. POSTOPERATIVE DIAGNOSES History for epigastric abdominal pain, personal history for nonsteroidal use, history for rectal bleeding, hiatal hernia. PROCEDURE Esophagogastroduodenoscopy. ANESTHESIA TIVA BRIEF HISTORY/INDICATIONS Mrs. Ledezma is an 86-year-old female whom I was asked to see earlier this morning by Dr. Misty Velazquez from [place], [place] as a result of the patient' s history for rectal bleeding. Upon questioning the patient she states that she has been having a component of rectal bleeding on and off over the course of the last week. Initially the rectal bleeding was more dark/maroon in nature. Yesterday she did pass a fair amount of bright red blood per rectum. Upon questioning she states that she has had some slight element of epigastric abdominal pain, especially after eating. Additionally, she has fairly significant nonsteroidal use and takes Excedrin on a daily basis. As a result of the above indications it was recommended that we proceed initially with esophagogastroduodenoscopy and if no abnormalities were noted we then will proceed with colonoscopy for further evaluation. For completeness please refer to notes included in the patient's chart. FINDINGS Upon upper endoscopy the esophagus, stomach and duodenum were within normal limits with the exception that the patient was found to have about a 5-cm hiatal hernia. NARRATIVE OF PROCEDURE After informed consent was obtained the patient was brought to the endoscopy suite and placed upon the table in left lateral decubitus position. The patient subsequently underwent total intravenous anesthesia by the nurse tech intern at my request. Formal time-out was then completed. Next, an Olympus gastroscope was inserted into the oral hypopharynx and subsequently into the esophagus under direct visualization. Gastroscope was advanced through the esophagus, stomach, pylorus, duodenal bulb, second portion of the duodenum. Scope was then slowly withdrawn. First and second portions of the duodenum were within normal limits. No evidence of duodenitis or ulcerations was noted. There was no evidence for old blood upon the surface of the mucosa. Scope was drawn back to the prepyloric region and antrum. Again, no mucosal abnormalities were noted. A J-maneuver was then performed. The patient was found to have a moderate hiatal hernia. Otherwise, the fundal portion and cardia of the stomach were without noted abnormalities. Scope was allowed to straighten and was slowly withdrawn and the remaining corpus of the stomach was well visualized and again without noted abnormalities. Scope was drawn back to the level of the squamocolumnar junction which is about 5 cm above the level of the diaphragm. The squamocolumnar junction was well demarcated with no endoscopic evidence for Garnica's metaplasia or distal esophagitis. Again, there was no evidence of old blood involving the esophageal, stomach or duodenal mucosa. Scope was slowly withdrawn and the remaining esophageal mucosa was found to be within normal limits. The patient tolerated the procedure without difficulty and was sent back to the preop area in stable condition. JUSTIN
[2017-01-30] MEDS: AMITRIPTYLINE 10 MG TABLET PO SCH (20:52)
[2017-01-30] MEDS: SIMVASTATIN 40 MG TABLET PO SCH (20:52)
[2017-01-31] MEDS: LEVOTHYROXINE 88 MCG TABLET PO SCH (06:14)
[2017-01-31] MEDS: PROPANOLOL 80 MG PO SCH (08:59)
--- NOTE | 2017-01-31 10:10 | Progress Note ---
- Date 01/31/17 Subjective: Pt doing well this am. Denies any bloody bm's overnight. Denies any cp, sob, n/v /d, f/c. Objective Vital signs: Temperature 97.2 F 01/31/17 07:37 Pulse Rate 72 01/31/17 07:37 Respiratory Rate 16 01/31/17 07:37 Blood Pressure 145/81 H 01/31/17 07:37 Pulse Oximetry 96 01/31/17 07:37 Rhythm: Normal Sinus Rhythm Height/Weight/BMI: Height 5 ft 5 in Weight 68 kg Body Mass Index 24.5 - Constitutional Present: no acute distress - Routine HEENT Exam Head: Present: normocephalic, atraumatic Eye: Present: EOMI ENT: Present: mucous membranes moist - Routine Respiratory Exam Present: CTA bilaterally. Absent: wheezes - Routine Cardiovascular Exam Present: RRR, no murmur - Routine Abdominal Exam Present: soft, non distended, non tender - Routine Extremities Exam Present: no edema. Absent: cyanosis, clubbing - Routine Skin Exam Present: intact, dry. Absent: erythema - Routine Neurological Exam Present: alert, oriented X3 Results - Labs CBC & Chem 7: 01/30/17 11:38 01/31/17 06:51 Assessment and Plan (1) GI bleeding Current visit: Yes Status: Acute Assessment and Plan: LGI Bleed -Diverticulosis vs. angiodysplasia -S/p EGD which was unremarkable other then hiatal hernia -Hgb 12.1-->10.3-->11.1, Hgb stable, no active bleeding currently -IV fluids, monitor, bowel prep in anticipation for colonoscopy tomorrow HTN -Vitals stable, BPs around 140s -Will Cont. home propranolol HLD -Cont. home simvastatin Hypothyroid -Cont. home Levothyroxine Primary hyperparathyroidism -status post removal of hyperparathyroids -Although Ca is 11, will check ical DVT ppx -SCDs Hospital Course Summary Disclaimer: The visit summary below is not to be considered part of the above Progress Note. Hospital Course: Assessment GI bleeding evidenced by hematochezia Hypertension Hypercholesterolemia Restless leg syndrome Osteopenia Hypothyroidism Primary hyperparathyroidism-status post removal of hyperparathyroids Gout Osteoarthritis Diverticulosis 01/29/17-hospital admission for observation Admit to observation under the hospitalist service, Dr. Bragg attending, for GI bleed. Consult Dr. Hewitt for his recommendations on endoscopy. Patient will be nothing by mouth in anticipation of endoscopy. Protonix IV twice a day for GI prophylaxis and GI bleed. IVF'S for fluid maintenance. Check CBC and BMP on admission. Repeat CBC in the a.m. SCDs for DVT prophylaxis. Avoid Lovenox due to GI bleed. Will obtain PT consult as patient has reportedly had 6 falls this year and daughter thinks she drags her left leg when she walks. Patient requests DO NOT RESUSCITATE code status. Patient's care to return to Dr. Abimbola Spence on discharge. 01/29/17 20:27 Placed on a clear diet. Hgb is stable. Will monitor. IVF started for lightheadedness but stopped later when BP elevated. Hydralazine available prn. Restart propranolol as well as synthroid, zocor, elavil. 01/30/17 10:45 01/30/17 Patient doing well and wants to go home soon. Hgb dropped to 10 from 12 but likely partly due to getting IV fluids but will trend H&H. Pt not having anymore blood BMs. Will continue to monitor for bleeding and will trend H&H. If all is stable then can consider discharging pt tomorrow with outpatient colonoscopy as pt does need urgent colonoscopy. Will check ical due to mild hypercalcemia which is odd considering reported hx of parathyroidectomy. Will cont. home meds for chronic conditions. 01/31/17 10:10 Pt doing better. No active bleeding for close to 2 days. Surgery team was concerned for on again off again bleeding and pt lives alone at home so decision was made to keep in hospital for colonoscopy. Will do bowel prep today in anticipation for colonoscopy tomorrow.
[2017-01-31] MEDS ORDERED: POTASSIUM CHLORIDE PREMIX 10 MEQ/100 ML BAG IV SCH (10:15)
[2017-01-31] MEDS: ACETAMINOPHEN 325 MG TABLET PO PRN (10:32)
[2017-01-31] MEDS: POTASSIUM CHLORIDE INJ 10 MEQ in NS 100 ML IV SCH (12:07)
[2017-01-31] MEDS ORDERED: POLYETHYL. GLYCOL 3350 BOTTLE 238 GM PO ONE (15:30)
[2017-01-31] MEDS ORDERED: Bisacodyl EC TAB 5 MG TABLET PO ONE (18:01)
[2017-01-31] MEDS: AMITRIPTYLINE 10 MG TABLET PO SCH (22:56)
[2017-01-31] MEDS: SIMVASTATIN 40 MG TABLET PO SCH (22:56)
[2017-02-01] MEDS: LR 1,000 ML IV SCH ×2 (06:46→12:06)
--- NOTE | 2017-02-01 07:18 | Progress Note ---
DATE 01/31/2017 FINDINGS Ms. Ledezma was without complaints today. She has no further rectal bleeding. VITALS: Temperature 96.6, pulse 78, respirations 14, blood pressure 140/75, SaO2 94% on room air. CHEST: Clear to auscultation bilaterally. HEART: Regular rate and rhythm. Normal S1 and S2 without gallops, murmurs or clicks. ABDOMEN: Palpation of the abdomen reveals it to be soft and nontender. I do not appreciate any evidence for hepatosplenomegaly or abnormal masses. LABORATORY/RADIOGRAPH EVALUATION A BMP was obtained today and found to be without marked abnormalities. Calcium was elevated yesterday at 11.0. Calcium has now decreased to 10.3. Potassium is slightly low at 3.1. ASSESSMENT 86-year-old female with history for rectal bleeding. PLAN Colonoscopy. I informed the patient at this point in time I would recommend we go ahead and proceed with a colonoscopy tomorrow. I have discussed with the patient what a colonoscopy entails and its associated risks which include, but are not limited to, bleeding and/or perforation requiring surgery. I do see that the patient was given oral potassium supplementation earlier today. SNEHAD
[2017-02-01] MEDS: LEVOTHYROXINE 88 MCG TABLET PO SCH (07:21)
--- NOTE | 2017-02-01 08:47 | Anesthesia Preoperative Report ---
Anesthesia Preoperative Record - Date and Time Date: 02/01/17 Preoperative Diagnosis: GI Bleed Proposed Procedure: C-Scope NPO Since Date: 02/01/17 NPO Since Time: 00:00 Allergies/Adverse Reactions: Allergies Allergy/AdvReac Type Severity Reaction Status Date / Time cephalexin [From Keflex] Allergy Severe Swelling Verified 01/29/17 11:21 quinapril [From Accupril] Allergy Intermediate Cough Verified 01/29/17 11:21 Sulfa (Sulfonamide Allergy Intermediate Rash Verified 01/29/17 11:21 Antibiotics) ropinirole [From Requip] Allergy Unknown Verified 01/29/17 11:21 meperidine [From Demerol] AdvReac Severe Nausea and Verified 01/29/17 10:40 Vomiting carbidopa [From Sinemet] AdvReac Intermediate Constipatio Verified 01/29/17 11: 21 n levodopa [From Sinemet] AdvReac Intermediate Constipatio Verified 01/29/17 11:21 n - Vital Signs Vital Signs: Temperature 98.1 F 02/01/17 06:39 Pulse Rate 86 02/01/17 06:39 Respiratory Rate 17 02/01/17 06:39 Blood Pressure 189/90 H 02/01/17 06:39 Pulse Oximetry 97 02/01/17 06:39 Height and Weight: Height 5 ft 5 in Weight 68 kg Body Mass Index 24.5 - Medications Inpatient Medications: Current Medications Acetaminophen (Tylenol) 325 - 650 mg PO Q5H PRN PRN Reason: Discomfort Last Admin: 01/31/17 10:32 Dose: 650 mg Amitriptyline HCl (Elavil) 10 mg PO HS [facility] Last Admin: 01/31/17 22:56 Dose: 10 mg Clobetasol Propionate (Temovate Cream) 1 applic TOP BID PRN PRN Reason: Itching Hydralazine HCl (Apresoline) 10 mg PO Q3H PRN PRN Reason: FOR SBP > 160 Last Admin: 01/29/17 17:38 Dose: 10 mg Hydrochlorothiazide (Microzide) 12.5 mg PO DAILY [facility] Lactated Ringer's (Lactated Ringers) 1,000 mls @ 75 mls/hr IV .[id number] [facility] Last Admin: 02/01/17 06:46 Dose: 75 mls/hr Potassium Chloride (Potassium Chloride Premix) 10 meq in 100 mls @ 100 mls/hr IV Q1H [facility] Stop: 02/01/17 11:14 Levothyroxine Sodium (Synthroid) 88 mcg PO ACB [facility] Last Admin: 02/01/17 07:21 Dose: Not Given Propranolol HCl (Inderal La) 80 mg PO DAILY [facility] Last Admin: 01/31/17 08:59 Dose: 80 mg Simvastatin (Zocor) 80 mg PO HS [facility] Last Admin: 01/31/17 22:56 Dose: 80 mg Home Medications: Home Medications Medication Instructions Recorded Confirmed Type Amitriptyline [Elavil] 1 tab PO HS 01/29/17 01/29/17 History Clobetasol 0.05% Cream [TEMOVATE 15 applicatio TOP BID PRN 01/29/17 01/29/17 History Cream] Excedrin Extra Strength Caplet 2 tab PO PRN PRN 01/29/17 01/29/17 History HydroCHLOROthiazide [Microzide] 12.5 mg PO DAILY 01/29/17 01/29/17 History Levothyroxine Tab [Synthroid] 88 mcg PO DAILY 01/29/17 01/29/17 History Propranolol LA [Inderal LA] 80 mg PO DAILY 01/29/17 01/29/17 History Simvastatin 80 mg PO DAILY 01/29/17 01/29/17 History Is Patient on Beta Elie?: Yes - Medical History Respiratory: DENIES: Sleep Apnea Cardiovascular: Reports: Hypertension, High Cholesterol Gastrointestional: Reports: Gastrointestinal Bleeding (current) DENIES: Nausea or Vomiting Present Neuro/Musculoskeletal: Reports: HX.MS.OSAR (knees), Back Problems (back spasms) , Other (muscle spasms) Renal/Endocrine: Reports: Thyroid Disease Other History: Reports: Anesthesia Reactions, Blood Transfusions - Surgical History Endocrine Surgery/Treatments: Reports: Thyroidectomy Reproductive Surgery/Treatment: Reports: Hysterectomy Anesthesia Reactions: Nausea and Vomiting (with demerol) Hx Family Anesthesia Reaction: No History of Motion Sickness: No - Social History Smoking Status: Never smoker Hx Chewing Tobacco Use: No Second Hand Exposure: No Substance Use Type: does not use Alcohol Intake Frequency: does not drink - Pertinent Findings Laboratory: CBC and BMP 02/01/17 04:05 02/01/17 04:05 BMP 02/01/17 04:05 Sodium 143 Potassium 3.2 L Chloride 108 H Carbon Dioxide 27 BUN 7.0 D Creatinine 0.8 Glucose 110 Calcium 10.1 Liver Function 02/01/17 Range/Units 04:05 Albumin 3.8 (3.5-5.0) G/DL EKG: Sinus Rhythm - Physical Exam Respiratory Exam: Present: lungs clear Cardiovascular Exam: Present: regular rate and rhythm, no murmur - Airway Assessment Mallampati Score: II TMD: 2 Fingerbreadths Neck Extension: good Teeth: chipped teeth/crowns Overall Assessment: no airway concerns - ASA ASA Score: 3 - Plan Anesthesia: General TIVA - Discussion Discussion: Discussed risks/options/alternatives of anesthesia and questions answered. Patient consents. Nursing pain assessment noted. Present for Discussion: other (none) Attestation Statement: Prior to the delivery of any anesthetic medication, I examined the patient, developed the plan, obtained the patient's consent and discussed the risk and benefits of the procedure with the patient/guardian. - Additional Information Seen by Anesthesia: Yes
--- NOTE | 2017-02-01 10:47 | XRay Report ---
EXAM: XR chest 1V 1048 hours COMPARISON: 01/29/2017 at 0841 hours HISTORY: Possible Aspiration . FINDINGS: The heart is upper limits of normal to mildly enlarged. The pulmonary vascularity appears unremarkable. Linear opacities are seen at the left lung base likely representing atelectasis rather than infiltrate. The lungs are otherwise clear. There is no evidence for pleural effusion. There is no evidence for a pneumothorax. No osseous abnormalities are identified. IMPRESSION: 1. Linear opacities at left lung base is noted likely representing atelectasis rather than infiltrate. 2. The heart is upper limits of normal to mildly enlarged. [place] [facility] [place]: This report was generated soon after the exam was performed and is immediately available to the ordering clinician on 02/01/2017 10:43 AM. Additionally, the technologist will convey these results to the ordering clinician under my direction. .
[2017-02-01] MEDS ORDERED: PROPOFOL 500 MG/50 ML VIAL IV ONE (10:49)
[2017-02-01] MEDS: ALBUTEROL 2.5mg/3ml (0.083%) NEB AEROSOL SCH ×4 (11:10→19:45)
[2017-02-01] MEDS ORDERED: ALBUTEROL 2.5mg/3ml (0.083%) NEB AEROSOL PRN (11:49)
[2017-02-01] MEDS ORDERED: POTASSIUM CHLORIDE INJ 10 MEQ in NS 100 ML IV SCH (12:15)
[2017-02-01] MEDS: POTASSIUM CHLORIDE PREMIX 10 MEQ/100 ML BAG IV SCH ×4 (12:15→16:05)
[2017-02-01] MEDS: PROPANOLOL 80 MG PO SCH (12:15)
[2017-02-01] MEDS: POTASSIUM CHLORIDE INJ 10 MEQ in NS 100 ML IV SCH (13:44)
--- NOTE | 2017-02-01 15:56 | Progress Note ---
- Date 02/01/17 Subjective: Pt seen after colonoscopy and is okay. Pt apparently had an aspiration event during the procedure where her sats dropped and she needed O2. Pt currently is sitting comfortably and is on 2L O2. Pt is coughing up sputum occasionally. Denies any n/v, f/c, cp or sob. Objective Vital signs: Temperature 96.2 F L 02/01/17 11:37 Pulse Rate 75 02/01/17 15:22 Respiratory Rate 18 02/01/17 15:24 Blood Pressure 126/63 02/01/17 15:22 Pulse Oximetry 98 02/01/17 15:24 Rhythm: Normal Sinus Rhythm Height/Weight/BMI: Height 5 ft 5 in Weight 65.8 kg Body Mass Index 24.5 - Constitutional Present: no acute distress - Routine HEENT Exam Head: Present: normocephalic, atraumatic Eye: Present: EOMI - Routine Respiratory Exam Present: CTA bilaterally. Absent: dyspnea - Routine Cardiovascular Exam Present: RRR, no murmur - Routine Abdominal Exam Present: soft, non distended, non tender - Routine Extremities Exam Present: no edema. Absent: cyanosis, clubbing - Routine Skin Exam Present: intact, dry. Absent: erythema - Routine Neurological Exam Present: alert, oriented X3 Results - Labs CBC & Chem 7: 02/01/17 04:05 02/01/17 04:05 Assessment and Plan (1) GI bleeding Current visit: Yes Status: Acute Assessment and Plan: LGI Bleed -Diverticulosis vs. angiodysplasia -S/p EGD which was unremarkable other then hiatal hernia -Hgb 12.1-->10.3-->11.1-->11.3, Hgb stable, no active bleeding currently -S/p colonoscopy, report pending Aspiration Pneumonitis -Mild to moderate in nature -CXR doesn't show major infiltrate -No abx for now as pt is doing well, will cont. to monitor closely HTN -Vitals stable, BPs around 140s -Will Cont. home propranolol HLD -Cont. home simvastatin Hypothyroid -Cont. home Levothyroxine Primary hyperparathyroidism -status post removal of hyperparathyroids -Although Ca is 11, will check ical DVT ppx -SCDs Hospital Course Summary Disclaimer: The visit summary below is not to be considered part of the above Progress Note. Hospital Course: Assessment GI bleeding evidenced by hematochezia Hypertension Hypercholesterolemia Restless leg syndrome Osteopenia Hypothyroidism Primary hyperparathyroidism-status post removal of hyperparathyroids Gout Osteoarthritis Diverticulosis 01/29/17-hospital admission for observation Admit to observation under the hospitalist service, Dr. Bragg attending, for GI bleed. Consult Dr. Hewitt for his recommendations on endoscopy. Patient will be nothing by mouth in anticipation of endoscopy. Protonix IV twice a day for GI prophylaxis and GI bleed. IVF'S for fluid maintenance. Check CBC and BMP on admission. Repeat CBC in the a.m. SCDs for DVT prophylaxis. Avoid Lovenox due to GI bleed. Will obtain PT consult as patient has reportedly had 6 falls this year and daughter thinks she drags her left leg when she walks. Patient requests DO NOT RESUSCITATE code status. Patient's care to return to Dr. Abimbola Spence on discharge. 02/01/17 16:00 02/01/17 Pt had colonoscopy done today and had aspiration. Aspiration seems to be mild as pt is doing okay overall and not requiring much O2 support. Will hold of on abx for now. Will monitor closely. GI bleed has seemed to have subsided but report of the colonoscopy is pending.
[2017-02-01] MEDS: ACETAMINOPHEN 325 MG TABLET PO PRN ×2 (16:07→22:12)
--- NOTE | 2017-02-01 18:13 | Anesthesia Postoperative Note ---
- Date and Time Date: 02/01/17 Time: 18:11 - Status Patient Participated in Evaluation: Patient Participated in Person Vital Signs: Temperature 96.2 F L 02/01/17 11:37 Pulse Rate 75 02/01/17 15:22 Respiratory Rate 18 02/01/17 15:24 Blood Pressure 126/63 02/01/17 15:22 Pulse Oximetry 98 02/01/17 15:24 Respiratory Function: Airway Patent Cardiovascular Function: Regular Pulse EKG: Sinus Rhythm Mental Status: Alert and Oriented Pain Intensity: 0 Hydration: Taking PO Fluids Complications During Recover: None Apparent Post Anesthesia Care Notes: Pt with a likely aspiration during procedure. Doing well with minimal O2. Denies pain or problems at this time. - Follow-Up Instructions Instructions: Per Surgeon
--- NOTE | 2017-02-01 19:50 | Operative Note ---
DATE OF SERVICE 02/01/2017 SURGEON Ray Hewitt MD PREOPERATIVE DIAGNOSIS History for rectal bleeding. POSTOPERATIVE DIAGNOSES History for rectal bleeding, sigmoid diverticulosis, colonic polyps located at 40-50 cm x 4, 60 cm x 2, hepatic flexure x 1, ascending colon x 1. PROCEDURE Colonoscopy with polypectomies via cold biopsy technique and snare polypectomy technique. ANESTHESIA TIVA BRIEF HISTORY/INDICATIONS Mrs. Ledezma is an 86-year-old female who recently presented to our facility as a result of her one-week history of intermittent rectal bleeding. She did undergo upper endoscopy that did not reveal any underlying etiology for her rectal bleeding. It was therefore recommended that she undergo a colonoscopy. Patient presents today to undergo this procedure. FINDINGS Upon colonoscopy the patient was found to have numerous diverticula within the sigmoid colon region. There did appear to be some "clot" within a few of these diverticula suggesting that the patient may indeed have had a prior diverticular bleed. The patient was found to have several polyps that ranged on the order from about 5 mm up to 1 cm in dimension. Each polyp was removed either via cold biopsy technique or a snare polypectomy technique in its entirety. There was no evidence for angiodysplastic lesions or alexandra malignancies. NARRATIVE OF PROCEDURE After informed consent was obtained the patient was brought to the endoscopy suite and placed on the table in left lateral decubitus position. Patient subsequently underwent total intravenous anesthesia by the nurse lay out technician at my request. Formal timeout was then completed. Next, a digital rectal exam was performed. Normal sphincter tone. No rectal masses were appreciated. An Olympus colonoscope was inserted in the anus and advanced with the lumen of the colon under direct visualization at all times until the cecum was ascertained. Triangulation of teniae coli, ileocecal valve and appendiceal lumen were all visualized. Scope was slowly withdrawn. Within the mid ascending colon the patient was found to have a polyp on the order of 8 mm to 1 cm in dimension. A snare was placed around the polyp and the polyp was transected in its entirety and suctioned into a colonic trap. Scope was drawn back to the hepatic flexure and the patient was found to have an additional polyp that was on the order of 5 mm in diameter that was removed in its entirety via cold biopsy technique. Scope was drawn back to 60 cm from the anal verge where the patient was found have a polyp on the order of 7-8 mm in diameter. A snare was placed around this polyp and the polyp was transected in its entirety and suctioned into a colonic trap. There was a second polyp at 60 cm from the anal verge as well that was also on the order of 6-7 mm in diameter which was also transected via snare polypectomy technique and suctioned into a colonic trap. Scope was then continued to be withdrawn and at around 50 cm from the anal verge to about 40 cm from the anal verge the patient was found to have four diminutive-appearing colonic polyps that were each on the order of 5 mm in diameter and removed in their entirety via cold biopsy technique and placed in the same container. Scope was continued to be withdrawn. As stated above, the patient was found have numerous diverticula within the sigmoid colon region. There did appear to be a component of some old blood within a few of these diverticula suggesting that the patient may have had a prior diverticular bleed. Additionally, it should be also noted that the patient had some hyperpigmentation of her colon mostly noted within the ascending colon region indicative of melanosis coli/ prior laxative use. Colonoscope was continued to be withdrawn until it was brought forth back to the rectal vault. J-maneuver was performed. No worrisome perianal pathology was noted. Scope was allowed to straighten and was withdrawn through the verge. The patient did have a component of emesis during the midportion of the procedure. It did not appear that she had aspirated. Postprocedure chest x-ray will be obtained in the recovery room to err on the cautious side. The patient will be followed closely postoperatively for any signs of aspiration. Currently the patient appears to be without any postop complications and was sent back to the recovery room once deemed in stable condition. JUSTIN
[2017-02-01] MEDS: SIMVASTATIN 40 MG TABLET PO SCH (22:11)
[2017-02-01] MEDS: AMITRIPTYLINE 10 MG TABLET PO SCH (22:12)
[2017-02-02] MEDS: LR 1,000 ML IV SCH (03:20)
[2017-02-02] MEDS: LEVOTHYROXINE 88 MCG TABLET PO SCH (06:24)
[2017-02-02] MEDS: PROPANOLOL 80 MG PO SCH (08:18)
--- NOTE | 2017-02-02 10:08 | Discharge Summary ---
<Chinyere Gamino V - Last Filed: 02/02/17 10:05> Discharge Information Date of admission: 02/01/17 14:27 Anticipated date of discharge: 02/02/17 Attending Physician: Lulu Esqueda MD Primary care physician: Abimbola Spence MD Consults: Dr Ray Hewitt- General surgeon - Discharge Diagnosis (1) GI bleeding Status: Acute GI bleeding evidenced by hematochezia Hypertension Hypercholesterolemia Restless leg syndrome Osteopenia Hypothyroidism Primary hyperparathyroidism-status post removal of hyperparathyroids Gout Osteoarthritis Diverticulosis - Procedures Procedures: 01/29/17- Esophagogastroduodenoscopy- FINDINGS- Upon upper endoscopy the esophagus, stomach and duodenum were within normal limits with the exception that the patient was found to have about a 5-cm hiatal hernia. 02/01/17-Colonoscopy with polypectomies via cold biopsy technique and snare polypectomy technique. FINDINGS Upon colonoscopy the patient was found to have numerous diverticula within the sigmoid colon region. There did appear to be some "clot" within a few of these diverticula suggesting that the patient may indeed have had a prior diverticular bleed. The patient was found to have several polyps that ranged on the order from about 5 mm up to 1 cm in dimension. Each polyp was removed either via cold biopsy technique or a snare polypectomy technique in its entirety. There was no evidence for angiodysplastic lesions or alexandra malignancies. - Laboratory Labs: 02/01/17 04:05 02/02/17 03:53 - Microbiology None - Radiology Radiology: 02/01/17-chest x-ray IMPRESSION: 1. Linear opacities at left lung base is noted likely representing atelectasis rather than infiltrate. 2. The heart is upper limits of normal to mildly enlarged. - Pathology Pending at time of discharge History of Present Illness HPI: Patient is an 86-year-old female who presents as a direct admission from [facility] for a GI bleed. She started having bloody stools on 01/24/17. Bleeding has been bright red and sometimes clots. Patient reports she had bleeding the through the . On the and most of the she didn't have much bleeding. Yesterday afternoon she had a large stool with a large amount of bleeding so she was seen by Dr. Velazquez in the clinic. At that point, anoscopy was performed and showed a large amount of blood beyond the point of which Dr. Velazquez could see with anoscopy exam. Patient was scheduled for CT scan of her abdomen today as patient was declining colonoscopy. Overnight, she had a large bloody stool at 1:30 AM and continued to have bloody stool so reported to the ER around 5 AM. Her hemoglobin at 6 AM this morning was 12.1. Yesterday at 1715 hemoglobin was 12.2. She's had no pain. No lightheadedness or dizziness. Has history of diverticuli found on colonoscopy. Last colonoscopy was 2003. She has had past history of hemorrhoidectomy as well. She does not take any blood thinners. Given the amount of blood she is losing and how long she's had symptoms, decision was made to transfer to [facility] for observation and probable colonoscopy with Dr. Hewitt. Patient was seen sitting in bed with her daughter at bedside. She does not have any complaints at this time, other than she is anxious about what might be causing the bleeding. She reports that before her symptoms started, she had "farted and it was a sonic boom." States she had never had flatulence which was that loud. She states it actually startled her. She did not have any pain at the time, but about 30 minutes after that is when she started having the bright red bleeding. Objective Vital signs: Temperature 97.0 F 02/02/17 07:23 Pulse Rate 65 02/02/17 07:23 Respiratory Rate 18 02/02/17 07:23 Blood Pressure 144/66 H 02/02/17 07:23 Pulse Oximetry 97 02/02/17 07:23 Rhythm: Normal Sinus Rhythm Height/Weight/BMI: Height 1.65 m Weight 68 kg Body Mass Index 24.5 - Constitutional Present: no acute distress, well nourished, well developed - Routine HEENT Exam Eye: Present: EOMI ENT: Present: mucous membranes moist, dentition normal - Routine Respiratory Exam Present: CTA bilaterally. Absent: wheezes - Routine Cardiovascular Exam Present: RRR, S1, S2. Absent: murmur - Routine Abdominal Exam Present: soft, normoactive bowel sounds, non distended. Absent: tenderness - Routine Extremities Exam Present: normal capillary refill - Routine Skin Exam Present: intact, dry, warm - Routine Neurological Exam Present: alert, oriented X3, CN II-XII intact - Routine Lymphatic Exam Lymphatic: Absent: adenopathy - Routine Psychiatric Exam Present: normal affect, cooperative Hospital Course This is a general summary of the patient's hospital course. For more details refer to the complete medical record. Hospital course: Assessment GI bleeding evidenced by hematochezia Hypertension Hypercholesterolemia Restless leg syndrome Osteopenia Hypothyroidism Primary hyperparathyroidism-status post removal of hyperparathyroids Gout Osteoarthritis Diverticulosis 01/29/17-hospital admission for observation Admit to observation under the hospitalist service, Dr. Bragg attending, for GI bleed. Consult Dr. Hewitt for his recommendations on endoscopy. Patient will be nothing by mouth in anticipation of endoscopy. Protonix IV twice a day for GI prophylaxis and GI bleed. IVF'S for fluid maintenance. Check CBC and BMP on admission. Repeat CBC in the a.m. SCDs for DVT prophylaxis. Avoid Lovenox due to GI bleed. Will obtain PT consult as patient has reportedly had 6 falls this year and daughter thinks she drags her left leg when she walks. Patient requests DO NOT RESUSCITATE code status. Patient's care to return to Dr. Abimbola Spence on discharge. 01/30/17- LGI Bleed -Diverticulosis vs. angiodysplasia -S/p EGD which was unremarkable other then hiatal hernia -Hgb 12.1-->10.3, trend H&H, no active bleeding -IV fluids, monitor, advance diet, Dr. Hewitt following HTN -Vitals stable, BPs around 140s -Will Cont. home propranolol HLD -Cont. home simvastatin Hypothyroid -Cont. home Levothyroxine Primary hyperparathyroidism -status post removal of hyperparathyroids -Although Ca is 11, will check ical 01/31/17- LGI Bleed -Diverticulosis vs. angiodysplasia -S/p EGD which was unremarkable other then hiatal hernia -Hgb 12.1-->10.3-->11.1, Hgb stable, no active bleeding currently -IV fluids, monitor, bowel prep in anticipation for colonoscopy tomorrow 02/01/17 Pt had colonoscopy done today and had aspiration. Aspiration seems to be mild as pt is doing okay overall and not requiring much O2 support. Will hold of on abx for now. Will monitor closely. GI bleed has seemed to have subsided but report of the colonoscopy is pending. 02/02/17- Discharge Patient is seen and examined today. She is doing well in stable condition. No evidence of further GI bleeding. Her appetite has been good. She is eating 100% without nausea. We'll plan to discharge patient home today. She will continue on normal medications without new prescriptions at time of discharge. She is encouraged to follow-up with her primary care provider, Dr. Abimbola Spence in one week. Pathology results are still pending. She is instructed to present to PCP or the emergency room if GI bleeding returns or she becomes against to have abdominal pain, nausea or fever. Time spent with patient: discharge greater than 30 minutes DVT Prophylaxis: SCD's Discharge Plan - Discharge Disposition Discharge Date: 02/02/17 Disposition: 01 Discharged Home, Self-Care *Condition: Stable Reason For Visit (Visit label in EMR): GI Bleed - Discharge Medications *Discharge Medications: New Acetaminophen [Tylenol] 325 - 650 mg PO Q5H PRN tab PRN Reason: Discomfort Continue Propranolol LA [Inderal LA] 80 mg PO DAILY HydroCHLOROthiazide [Microzide] 12.5 mg PO DAILY Clobetasol 0.05% Cream [TEMOVATE Cream] 15 applicatio TOP BID PRN PRN Reason: Itching Simvastatin 80 mg PO DAILY Amitriptyline [Elavil] 1 tab PO HS Excedrin Extra Strength Caplet 2 tab PO PRN PRN PRN Reason: Headache Levothyroxine Tab [Synthroid] 88 mcg PO DAILY - Discharge Packet/Instructions *Diet: Regular *Activity: Activity as tolerated *Pain Management/Treatment: Tylenol as needed for pain *Wound Care: None Additional Instructions: Follow up with Dr Abimbola Spence in 1 week for follow up *Expected Signs/Symptoms: Continued improvement in pain *Notify Physician if: Fever, shortness of breath, chest pain, abdominal pain or blood in your stools *During Business Hours Contact: Call Dr Spence office *After Business Hours Contact: Call oncall physician or present to the ER *Pending Lab/Results: Follow up w/Provider - Referrals/Follow Up *Referrals/Follow Up: Abimbola Spence MD [Family Provider] - (Follow up in 1 week ) - Patient Handouts Patient Handouts: Gastrointestinal Bleeding (DC) - Dismissal Complete Discharge Instructions are:: Complete <Lulu Esqueda - Last Filed: 02/02/17 15:28> Discharge Information Date of admission: 02/01/17 14:27 Attending Physician: Lulu Esqueda MD Primary care physician: Abimbola Spence MD Consults: 01/29/17 12:31 Physician Consult [CONS] Routine Consulting Provider: Ray Hewitt Reason For Exam: gi bleed 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 For more details refer to the complete medical record. Hospital course: Pt has not had any gi bleed for 3 days and her Hgb is stable. Pt had minor aspiration event during colonoscopy procedure but recovered well some hours later. Pt had 12 polyps biopsied so she was instructed to follow up on the results of those tests. Pt had LGI bleed during admission and it is still unclear as to the etiology of the bleed.
[2017-02-02] MEDS: ALBUTEROL 2.5mg/3ml (0.083%) NEB AEROSOL SCH ×2 (10:21→15:24)
[2017-02-02 11:18] VITALS: BP 132/69; PULSE 66; RESP 16; TEMP 97.8; O2SAT 95
== END 2017-02-02 12:03 | disposition home or self-care (01) | DRG 377 ==
LOC: SUATTDRO 10:38 → SRG 10:38 → INTOOBSV 10:38
PROVIDERS: ADMIT Hospitalist; ATTEND Internal Medicine
PROC: END.EGD (2017-01-29 15:30)